=== PATIENT | female | born 1995 | race Caucasian/White ===

== ENCOUNTER 2018-04-27 15:01 | Emergency (ER) | payer OTHER ==
[~2018-04-27] VITALS: Ht 162.6 cm; Wt 90.7 kg
[2018-04-27 15:14] VITALS: BP 145/99
[2018-04-27] MEDS ORDERED: Morphine Sulfate 4mg/ml Inj IVP ONE (15:30)
[2018-04-27 15:38] LABS: BASOPHILS % (AUTO) 0.4 % (0.0-2.0); EOSINOPHILS % (AUTO) 0.4 % (0.0-3.0); HEMATOCRIT 43.5 % (37.0-47.0); HEMOGLOBIN 14.6 G/DL (12.0-16.0); LYMPHOCYTES % (AUTO) 14.7 % (20.0-45.0); MEAN CORPUSCULAR VOLUME 84 FL (80-99); MONOCYTES % (AUTO) 6.8 % (1.0-10.0); NEUTROPHILS % (AUTO) 77.7 % (45.0-75.0); PLATELET COUNT 274 K/UL (150-450); RED BLOOD COUNT 5.16 M/UL (4.20-5.40); RED CELL DISTRIBUTION WIDTH 10.7 % (11.6-14.8); WHITE BLOOD COUNT 10.5 K/UL (4.8-10.8)
[2018-04-27 15:46] LABS: ANION GAP 8 mmol/L (5-15); BLOOD UREA NITROGEN 10 mg/dL (7-18); CALCIUM 9.1 MG/DL (8.5-10.1); CARBON DIOXIDE 27 MMOL/L (21-32); CHLORIDE 103 MMOL/L (98-107); CREATININE 0.9 MG/DL (0.55-1.30); POTASSIUM 3.7 MMOL/L (3.5-5.1); SODIUM 138 MMOL/L (136-145)
[2018-04-27 15:57] LABS: ALANINE AMINOTRANSFERASE 38 U/L (12-78); ALBUMIN 3.8 G/DL (3.4-5.0); ALKALINE PHOSPHATASE 83 U/L (46-116); ASPARTATE AMINO TRANSFERASE 21 U/L (15-37); BILIRUBIN,TOTAL 1.3 MG/DL (0.2-1.0)
[2018-04-27 15:58] LABS: BILIRUBIN,DIRECT 0.2 MG/DL (0.0-0.3)
[2018-04-27 16:03] LABS: APPEARANCE,URINE CLEAR; BILIRUBIN, URINE NEGATIVE (NEGATIVE); COLOR,URINE PALE YELLOW; GLUCOSE, URINE (UA) NEGATIVE (NEGATIVE); KETONES,URINE NEGATIVE (NEGATIVE); LEUKOCYTE ESTERASE ,URINE NEGATIVE (NEGATIVE); NITRITE,URINE NEGATIVE (NEGATIVE); PH,URINE 7 (4.5-8.0); PROTEIN,URINE NEGATIVE (NEGATIVE); UROBILINOGEN,URINE NORMAL MG/DL (0.0-1.0)
[2018-04-27 17:22] VITALS: BP 139/76
--- NOTE | 2018-04-27 17:33 | Diagnostic Imaging Report ---
Indication: Right flank pain x1 week Technique: Spiral acquisitions obtained through the abdomen and pelvis. No oral contrast utilized, per emergency room physician request No IV contrast utilized, per referring physician request.. Multiplanar reconstructions were generated. Total dose length product 1047.97 mGycm. CTDIvol(s) 19.07 mGy. Dose reduction achieved using automated exposure control Comparison: None Findings: There is a 3 mm calculus in the distal right ureter, immediately proximal to the ureterovesical junction. This results in mild right hydroureter, hydronephrosis, and perinephric fat stranding. No intrarenal calculi demonstrated in either kidney. No left ureteral calculi or hydronephrosis. Lack of IV contrast limits assessment of the renal parenchyma. Right kidney demonstrates a 2 cm cyst in the interpolar region. Lack of IV contrast limits assessment of the other solid organs. Liver, gallbladder, bile ducts, pancreas, spleen, adrenals are all unremarkable. No retroperitoneal or mesenteric mass or adenopathy. Uterus and ovaries are unremarkable. No pelvic mass or adenopathy. The included lung bases are clear. The bones are unremarkable The appendix is normal. No evidence of diverticulosis or diverticulitis. No small bowel distention. No free or loculated intraperitoneal air or fluid is evident. Impression: Positive for 3 mm right distal ureteral calculus, resulting in mild right hydronephrosis and hydroureter Incidental finding 2 cm right renal cyst The CT scanner at [facility] is accredited by the [employer] and the scans are performed using protocols designed to limit radiation exposure to as low as reasonably achievable to attain images of sufficient resolution adequate for diagnostic evaluation.
--- NOTE | 2018-04-27 17:48 | Emergency Room Report ---
History of Present Illness General Chief Complaint: Pain Source: Patient Present Illness HPI 23-year-old female presents emergency department complaining of 10 out of 10 in severity right flank pain 3 days. Patient reports that her pain was less severe approximately one week ago when she was diagnosed with a kidney stone in a ER in [place]. Patient states that she was discharged home with Tylenol No. 3 and told that it would pass. She states that over the last 3 days she has had progression of her pain, new onset right flank tenderness, and urinary urgency. Patient denies frequency, dysuria or hematuria. Denies fevers or chills. She reports some intermittent nausea denies vomiting. Patient also denies constipation or diarrhea. Denies CP, Palpitations, LOC, AMS, dizziness, Changes in Vision, Sensation, paresthesias, or a sudden severe headache. Allergies: Coded Allergies: ZOLPIDEM (Verified Allergy, Unknown, 04/27/18) Patient History Past Medical History: see triage record Past Surgical History: none Pertinent Family History: none Last Menstrual Period: on control Now: No Immunizations: UTD Reviewed Nursing Documentation: PMH: Agreed; PSxH: Agreed Review of Systems All Other Systems: negative except mentioned in HPI Physical Exam Vital Signs Date Time Temp Pulse Resp B/P (MAP) Pulse Ox O2 Delivery O2 Flow Rate FiO2 04/27/18 15:02 98.3 91 18 145/99 97 Room Air 98.2 Sp02 EP Interpretation: reviewed, normal General Appearance: alert, GCS 15, non-toxic, moderate distress Head: normocephalic, atraumatic ENT: hearing grossly normal, normal voice Neck: full range of motion Respiratory: lungs clear, normal breath sounds, speaking full sentences Cardiovascular #1: regular rate, rhythm Gastrointestinal: normal bowel sounds, soft, other - Right lateral TTP. Rectal: deferred Genitourinary: normal inspection, CVA tenderness (R) Musculoskeletal: back normal, gait/station normal, normal range of motion, non- tender Neurologic: alert, oriented x3, responsive, motor strength/tone normal, sensory intact, speech normal, grossly normal Psychiatric: judgement/insight normal Skin: normal color, no rash, warm/dry, well hydrated Lymphatic: no adenopathy Medical Decision Making PA Attestation Dr. Malhotra is my supervising physician whom pt. management has been discussed with. Diagnostic Impression: Primary Impression: Renal calculus or stone ER Course 23-year-old female presents emergency department complaining of 10 out of 10 in severity right flank pain 3 days. Patient reports that her pain was less severe approximately one week ago when she was diagnosed with a kidney stone in a ER in [place]. Patient states that she was discharged home with Tylenol No. 3 and told that it would pass. She states that over the last 3 days she has had progression of her pain, new onset right flank tenderness, and urinary urgency. Patient denies frequency, dysuria or hematuria. Denies fevers or chills. She reports some intermittent nausea denies vomiting. Patient also denies constipation or diarrhea. Denies CP, Palpitations, LOC, AMS, dizziness, Changes in Vision, Sensation, paresthesias, or a sudden severe headache. Ddx considered but are not limited to Diverticulitis, acute appy, diarrhea,UC, PUD, GE, pancreatitis, gallstone, kidney stone, pyelonephritis, UTI, obstruction. Vital signs: are WNL, pt. is afebrile H&PE are most consistent with Known history of right-sided kidney stone, will workup for UTI/Pyelo. ORDERS: -CBC, CMP, lipase:unremarkable - UA: consistent with stone no evidence of infection -HCG: negative - CT abdomen and pelvis no contrast: "3 mm stone in the right ureter, mild hydronephrosis and perinephric stranding." Per official radiology report- Please see report for specific details. ED INTERVENTIONS: -- 1000NS --6mg Morphine for pain -Toradol 20mg IV Pt. d/c with flowmax, and pain medications. pt. given list of PCP clinics in the area. D/w pt. follow up with PMD, gave strict ED return precautions. DISCHARGE: At this time pt. is stable for d/c to home. Will provide printed patient care instructions, and any necessary prescriptions. Care plan and follow up instructions have been discussed with the patient prior to discharge. Labs Test 04/27/18 15:10 04/27/18 15:17 Urine Color Pale yellow Urine Appearance Clear Urine pH 7 (4.5-8.0) Urine Specific [place] 1.005 (1.005-1.035) Urine Protein Negative (NEGATIVE) Urine Glucose (UA) Negative (NEGATIVE) Urine Ketones Negative (NEGATIVE) Urine Occult Blood 5+ (NEGATIVE) Urine Nitrite Negative (NEGATIVE) Urine Bilirubin Negative (NEGATIVE) Urine Urobilinogen Normal MG/DL (0.0-1.0) Urine Leukocyte Esterase Negative (NEGATIVE) Urine RBC 2-4 /HPF (0 - 2) Urine WBC 0-2 /HPF (0 - 2) Urine Squamous Epithelial Cells Few /LPF (NONE/OCC) Urine Bacteria Few /HPF (NONE) Urine HCG, Qualitative Negative (NEGATIVE) White Blood Count 10.5 K/UL (4.8-10.8) Red Blood Count 5.16 M/UL (4.20-5.40) Hemoglobin 14.6 G/DL (12.0-16.0) Hematocrit 43.5 % (37.0-47.0) Mean Corpuscular Volume 84 FL (80-99) Mean Corpuscular Hemoglobin 28.3 PG (27.0-31.0) Mean Corpuscular Hemoglobin Concent 33.5 G/DL (32.0-36.0) Red Cell Distribution Width 10.7 % (11.6-14.8) Platelet Count 274 K/UL (150-450) Mean Platelet Volume 7.6 FL (6.5-10.1) Neutrophils (%) (Auto) 77.7 % (45.0-75.0) Lymphocytes (%) (Auto) 14.7 % (20.0-45.0) Monocytes (%) (Auto) 6.8 % (1.0-10.0) Eosinophils (%) (Auto) 0.4 % (0.0-3.0) Basophils (%) (Auto) 0.4 % (0.0-2.0) Sodium Level 138 MMOL/L (136-145) Potassium Level 3.7 MMOL/L (3.5-5.1) Chloride Level 103 MMOL/L (98-107) Carbon Dioxide Level 27 MMOL/L (21-32) Anion Gap 8 mmol/L (5-15) Blood Urea Nitrogen 10 mg/dL (7-18) Creatinine 0.9 MG/DL (0.55-1.30) Estimat Glomerular Filtration Rate > 60 mL/min (>60) Glucose Level 95 MG/DL (74-106) Calcium Level 9.1 MG/DL (8.5-10.1) Total Bilirubin 1.3 MG/DL (0.2-1.0) Direct Bilirubin 0.2 MG/DL (0.0-0.3) Aspartate Amino Transf (AST/SGOT) 21 U/L (15-37) Alanine Aminotransferase (ALT/SGPT) 38 U/L (12-78) Alkaline Phosphatase 83 U/L (46-116) Total Protein 7.6 G/DL (6.4-8.2) Albumin 3.8 G/DL (3.4-5.0) Globulin 3.8 g/dL Albumin/Globulin Ratio 1.0 (1.0-2.7) CT/MRI/US Diagnostic Results CT/MRI/US Diagnostic Results : Imaging Test Ordered: CT Abdomen and Pelvis No contrast Impression "3 mm stone in the right ureter, mild hydronephrosis and perinephric stranding. " Per official radiology report- Please see report for specific details Last Vital Signs Date Time Temp Pulse Resp B/P (MAP) Pulse Ox O2 Delivery O2 Flow Rate FiO2 04/27/18 17:22 76 139/76 98 Room Air 04/27/18 15:59 98.2 04/27/18 15:14 18 Disposition: HOME, SELF-CARE Scripts Ibuprofen* (MOTRIN*) 600 Mg Tablet 600 MG ORAL THREE TIMES A DAY, #20 TAB 0 Refills Prov: Fatimah Posey 04/27/18 Tamsulosin HCl (Flomax) 0.4 Mg Cap.er.24h 0.4 MG ORAL DAILY, #2 CAP Prov: Fatimah Posey 04/27/18 Hydrocodone Bit/Acetaminophen 7.5-325* (NORCO 7.5-325*) 1 Each Tablet 1 TAB ORAL Q6H PRN for For Pain, #15 TAB 0 Refills Prov: Fatimah Posey 04/27/18 Referrals: NOT CHOSEN IPA/MD,REFERRING (PCP) Patient Instructions: Kidney Stones Additional Instructions: Take medications as directed. Follow up with a Primary Care Provider in 3-5 days, even if your symptoms have resolved. --Please review list of primary care clinics, if you do not already have a primary care provider Return sooner to ED if new symptoms occur, or current symptoms become worse. Do not drink alcohol, drive, or operate heavy machinery while taking Mentor as this may cause drowsiness. - Please note that this Emergency Department Report was dictated using Dragon wheel assembler technology software, occasionally this can lead to erroneous entry secondary to interpretation by the dictation equipment. Fatimah Posey Apr 27, 2018 17:48
[2018-04-27] MEDS ORDERED: FLOMAX0.4 MG ORAL (17:49)
[2018-04-27] MEDS ORDERED: IBUPROFEN600 MG ORAL (17:49)
[2018-04-27] MEDS ORDERED: NORCO 7.5-3251 EACH ORAL (17:49)
[2018-04-27] MEDS ORDERED: Ketorolac 30mg Inj IV ONE (18:00)
[2018-04-27 18:27] VITALS: BP 139/76
== END 2018-04-27 18:27 | disposition home or self-care (01) ==
LOC: EMR 16:00
DX: N13.2 Hydronephrosis with renal and ureteral calculous obstruction (principal); N28.1 Cyst of kidney, acquired
CPT/HCPCS: 36415; 74176; 80053; 81003; 81025; 82248; 85025; 96374; 96375; 99284; J1885; J2270

== ENCOUNTER 2019-05-07 01:17 | Emergency (ER) | payer OTHER ==
[~2019-05-07] VITALS: Ht 162.6 cm; Wt 87.1 kg
[~2019-05-07 01:17] MED LIST: FLOMAX0.4 MG ORAL; IBUPROFEN600 MG ORAL; NORCO 7.5-3251 EACH ORAL
[2019-05-07] MEDS ORDERED: NKM (01:23)
[2019-05-07 01:25] VITALS: BP 131/98
--- NOTE | 2019-05-07 01:25 | NUR ---
ED Nurse Note: Patient presents as a walk-in with complaints of abdominal pain due to kidney stones.
--- NOTE | 2019-05-07 01:36 | Emergency Room Report ---
History of Present Illness General Chief Complaint: Abdominal Pain Source: Patient Present Illness HPI This is a 24-year-old female with history of kidney stone diagnosed here last year. She presents with chief complaint of suprapubic pain. She thinks that she may have another kidney stone. Since her last visit, she follow-up with 2 doctors. She had what sounds like ultrasound done. One doctor said that she had a bunch of kidney stones. A second opinion from another doctor is that she did not have any kidney stone. She complaining of right flank pain but mostly suprapubic area. Some mild dysuria. No frequency or rash. Possible hematuria. Pain is 6 out of 10. Allergies: Coded Allergies: ZOLPIDEM (Verified Allergy, Unknown, 04/27/18) Patient History Past Medical History: see triage record, old chart reviewed Past Surgical History: none Pertinent Family History: none Social History: Denies: smoking Last Menstrual Period: 05/04/19 IUD Now: No : 1 Para: 0 Immunizations: other Reviewed Nursing Documentation: PSxH: Agreed Nursing Documentation-PMH Past Medical History: No History, Except For Review of Systems Eye: Denies: eye pain, blurred vision ENT: Denies: ear pain, nose congestion, throat swelling Respiratory: Denies: cough, shortness of breath Cardiovascular: Denies: chest pain, palpitations Gastrointestinal: Denies: abdominal pain, diarrhea, nausea, vomiting Genitourinary: Reports: pain Musculoskeletal: Denies: back pain, joint pain Skin: Denies: rash Neurological: Denies: headache, numbness Endocrine: Denies: increased thirst, increased urine Hematologic/Lymphatic: Denies: easy bruising All Other Systems: negative except mentioned in HPI Physical Exam Vital Signs Date Time Temp Pulse Resp B/P (MAP) Pulse Ox O2 Delivery O2 Flow Rate FiO2 05/07/19 01:20 98.4 89 18 131/98 (109) 97 Room Air Vitals normal Sp02 EP Interpretation: reviewed, normal General Appearance: well appearing, no apparent distress, alert Head: normocephalic, atraumatic Eyes: bilateral eye PERRL, bilateral eye EOMI ENT: hearing grossly normal, normal pharynx Neck: full range of motion, supple, no meningismus Respiratory: chest non-tender, lungs clear, normal breath sounds Cardiovascular #1: regular rate, rhythm, no murmur Gastrointestinal: normal bowel sounds, non tender, no mass, no organomegaly, no bruit, non-distended Musculoskeletal: back normal, gait/station normal, normal range of motion Psychiatric: mood/affect normal Skin: warm/dry Medical Decision Making Diagnostic Impression: Primary Impression: Renal colic ER Course Patient with flank pain and suprapubic pain. She has microscopic blood in the urine. No evidence of infection. Most likely passed a kidney stone. There is no obstruction. She felt better now. Will discharge home. CT/MRI/US Diagnostic Results CT/MRI/US Diagnostic Results : Imaging Test Ordered: CT scan abdomen and pelvis Impression Negative per radiologist Last Vital Signs Date Time Temp Pulse Resp B/P (MAP) Pulse Ox O2 Delivery O2 Flow Rate FiO2 05/07/19 01:20 98.4 89 18 131/98 (109) 97 Room Air Status: improved Disposition: HOME, SELF-CARE Condition: Stable Scripts Ibuprofen* (MOTRIN*) 600 Mg Tablet 600 MG ORAL THREE TIMES A DAY, #30 TAB 0 Refills Prov: Stephen Larsen MD 05/07/19 Additional Instructions: Increase fluids. Follow-up with your doctor in 7 days. Return if worse. Stephen Larsen MD May 07, 2019 01:36
[2019-05-07 01:40] LABS: APPEARANCE,URINE CLEAR; BILIRUBIN, URINE NEGATIVE (NEGATIVE); GLUCOSE, URINE (UA) NEGATIVE (NEGATIVE); KETONES,URINE NEGATIVE (NEGATIVE); LEUKOCYTE ESTERASE ,URINE 1+ (NEGATIVE); NITRITE,URINE NEGATIVE (NEGATIVE); PH,URINE 5 (4.5-8.0); PROTEIN,URINE 1+ (NEGATIVE); UROBILINOGEN,URINE NORMAL MG/DL (0.0-1.0)
[2019-05-07 01:46] LABS: COLOR,URINE YELLOW
--- NOTE | 2019-05-07 02:00 | NUR ---
ED Nurse Note: Urin test is negative, patient accompanied radiology for CT examination.
--- NOTE | 2019-05-07 02:13 | NUR ---
ED Nurse Note: Patient returned from CT.
--- NOTE | 2019-05-07 02:29 | Diagnostic Imaging Report ---
CT ABDOMEN + PELVIS Without Contrast: Lower lungs: No acute findings. Liver: Unremarkable. Gallbladder: Unremarkable. Spleen, pancreas, and adrenal glands: No acute findings. Kidneys: No hydronephrosis or obstructive nephrolithiasis. Bowel: No bowel obstruction. No appendicitis. Bladder: Unremarkable. Pelvic organs: Unremarkable. Approximately 3 cm. Aorta: No aneurysm. Bones: No acute fracture.
[2019-05-07] MEDS ORDERED: IBUPROFEN600 MG ORAL (02:38)
[2019-05-07 02:44] VITALS: BP 131/98
--- NOTE | 2019-05-07 02:44 | NUR ---
ED Nurse Note: Patient cleared for discharge, she verbalized understanding of discharge instructions. Patient departed with all belongings.
== END 2019-05-07 02:44 | disposition home or self-care (01) ==
LOC: EMR 01:49
DX: N23 Unspecified renal colic (principal); Z88.8 Allergy status to other drugs, medicaments and biological substances; Z87.442 Personal history of urinary calculi
CPT/HCPCS: 74176; 81003; 81025; 99284

== ENCOUNTER 2019-09-20 19:13 | Emergency (ER) | payer OTHER ==
[~2019-09-20] VITALS: Ht 162.6 cm; Wt 86.2 kg
[~2019-09-20 19:13] MED LIST changes: +NKM
[2019-09-20 20:15] VITALS: BP 131/90
--- NOTE | 2019-09-20 20:15 | NUR ---
ED Nurse Note: Pt ambulated to ED c/o 05/26 Pain under R breast, boil x7 days, pt has hx of boils. VSS pt utilizes hot compresses
[2019-09-20] MEDS ORDERED: Bactrim-DS 1 tab ORAL ONE (20:30)
[2019-09-20] MEDS ORDERED: Cephalexin 500mg cap ORAL ONE (20:30)
[2019-09-20] MEDS ORDERED: BACTRIM DS TAB1 EAC1 ORAL (20:55)
[2019-09-20] MEDS ORDERED: CEPHALEXIN500 MG ORAL (20:55)
[2019-09-20 21:00] VITALS: BP 131/90
--- NOTE | 2019-09-20 21:12 | NUR ---
ER DISCHARGE NOTE: Patient is cleared to be discharged per ERMD, pt is aox4, on room air, with stable vital signs. pt was given dc and prescription instructions, pt was able to verbalize understanding, pt id band removed. pt is able to ambulate with steady gait. pt took all belongings.
--- NOTE | 2019-09-20 22:34 | Emergency Room Report ---
History of Present Illness General Chief Complaint: Skin Rash/Abscess Source: Patient Present Illness Allergies: Coded Allergies: ZOLPIDEM (Verified Allergy, Unknown, 04/27/18) Patient History Last Menstrual Period: 11/17/18 Now: No : 1 Para: 0 Nursing Documentation-[facility] Past Medical History: No Stated History Physical Exam Vital Signs Date Time Temp Pulse Resp B/P (MAP) Pulse Ox O2 Delivery O2 Flow Rate FiO2 09/20/19 20:09 98.4 85 19 131/90 (104) 98 Room Air Medical Decision Making Diagnostic Impression: Primary Impression: Cellulitis Last Vital Signs Date Time Temp Pulse Resp B/P (MAP) Pulse Ox O2 Delivery O2 Flow Rate FiO2 09/20/19 21:00 98.4 19 131/90 98 Room Air 09/20/19 20:15 89 Status: improved Disposition: HOME, SELF-CARE Condition: Stable Scripts Trimethoprim/Sulfamethoxazole 160/800* (BACTRIM DS TABLET*) 1 Each Tablet 1 TAB ORAL Q12H for 7 Days, #14 TAB 0 Refills Prov: Kalpesh Honeycutt MD 09/20/19 Cephalexin* (KEFLEX*) 500 Mg Capsule 500 MG ORAL EVERY 6 HOURS for 7 Days, #28 CAP Prov: Kalpesh Honeycutt MD 09/20/19 Referrals: NOT CHOSEN IPA/,REFERRING (PCP) Darío [facility]. [facility] Patient Instructions: Abscess Kalpesh Honeycutt MD Sep 20, 2019 22:34
== END 2019-09-20 21:00 | disposition home or self-care (01) ==
LOC: EMR 20:50
DX: L03.90 Cellulitis, unspecified (principal); Z88.8 Allergy status to other drugs, medicaments and biological substances
CPT/HCPCS: 99282